=== PATIENT | female | born 1945 ===

== ENCOUNTER 2021-08-24 06:00 | Outpatient (RCR) | payer MEDICARE, SELFPAY | END 2021-09-09 23:59 | disposition home or self-care (01) | LOC: GPT 06:00 | PROVIDERS: Referring Provider Orthopaedic Surgery; Visit Provider Orthopaedic Surgery | DX: Z47.1 Aftercare following joint replacement surgery (principal); Z96.652 Presence of left artificial knee joint | CPT/HCPCS: 97110; 97140; 97161; G0283 ==

== ENCOUNTER 2021-10-12 06:00 | Outpatient (RCR) | payer MEDICARE, SELFPAY | END 2021-10-19 23:59 | disposition home or self-care (01) | LOC: GPT 06:00 | PROVIDERS: Referring Provider Orthopaedic Surgery; Visit Provider Orthopaedic Surgery | DX: Z47.1 Aftercare following joint replacement surgery (principal); Z96.651 Presence of right artificial knee joint | CPT/HCPCS: 97110; 97162; G0283 ==

== ENCOUNTER 2021-10-20 06:00 | Outpatient (RCR) | payer MEDICARE, SELFPAY | END 2021-11-16 23:59 | disposition home or self-care (01) | LOC: GPT 06:00 | PROVIDERS: Referring Provider Orthopaedic Surgery; Visit Provider Orthopaedic Surgery | DX: Z47.1 Aftercare following joint replacement surgery (principal); Z96.651 Presence of right artificial knee joint | CPT/HCPCS: 97110; G0283 ==

== ENCOUNTER 2021-11-17 06:00 | Outpatient (RCR) | payer MEDICARE, SELFPAY | END 2021-12-17 23:59 | disposition home or self-care (01) | LOC: GPT 06:00 | PROVIDERS: Referring Provider Orthopaedic Surgery; Visit Provider Orthopaedic Surgery | DX: Z47.1 Aftercare following joint replacement surgery (principal); Z96.651 Presence of right artificial knee joint | CPT/HCPCS: 97110; 97112; 97116; 97140; G0283 ==

== ENCOUNTER 2021-12-18 06:00 | Outpatient (RCR) | payer MEDICARE, SELFPAY | END 2022-01-13 17:40 | disposition home or self-care (01) | LOC: GPT 06:00 | PROVIDERS: Referring Provider Orthopaedic Surgery; Visit Provider Orthopaedic Surgery | DX: Z47.1 Aftercare following joint replacement surgery (principal); Z96.651 Presence of right artificial knee joint | CPT/HCPCS: 97110; 97116; G0283 ==